=== PATIENT | female | born 1970 | race Hispanic/Latino ===

== ENCOUNTER 2017-06-07 00:40 | Emergency (ER) | payer SELFPAY ==
[2017-06-07] MEDS ORDERED: Dexamethasone 10 MG/ML VIAL ONE (01:04)
[2017-06-07] MEDS ORDERED: Albuterol Sulfate 2.5 mg/3 ml Neb ONE (01:10)
[2017-06-07 01:19] LABS: Hemoglobin 14.9 g/dL (12.0-16.0); Mean Corpuscular HGB CONC 33.2 g/dL (32.0-36.0); Mean Corpuscular Hemoglobin 30.1 pg (27.0-31.0); Mean Corpuscular Volume 90.9 fl (81.0-99.0); Mean Platelet Volume 6.6 fL (7.4-10.4); Platelet Count 267 thou/uL (130-400); Red Blood Cell (RBC) Count 4.96 mill/uL (4.20-5.40); White Blood Cell (WBC) Count 5.1 thou/uL (4.8-10.8)
[2017-06-07 01:32] LABS: ALT (SGPT) 52 U/L (8-55); AST (SGOT) 43 U/L (5-34); Albumin 4.2 g/dL (3.5-5.0); Alkaline Phosphatase 71 U/L (40-150); Anion Gap 11 mmol/L (10-20); BUN (Urea Nitrogen) 10 mg/dL (7.0-18.7); Bilirubin, Total 0.4 mg/dL (0.2-1.2); Calc. Creatinine Clearance 0 mL/min (70-130); Carbon Dioxide 26 mmol/L (22-29); Chloride 96 mmol/L (98-107); Estimated GFR-MDRD 84; Globulin 3.3 g/dL (2.4-3.5); Glucose 125 mg/dL (70-105); Protein, Total 7.5 g/dL (6.0-8.3); Sodium 130 mmol/L (136-145)
[2017-06-07 01:34] LABS: Band 3 % (5-11); Eosinophils 1 % (0-10); Lymphocytes 70 % (21-51); MDiff Complete? YES; Monocytes 7 % (0-10); Neutrophil 19 % (42-75)
[2017-06-07 01:36] LABS: CKMB 0.5 ng/mL (0-6.6); Troponin I Less than 0.010 ng/mL (< 0.028)
[2017-06-07 01:37] LABS: Potassium 2.9 mmol/L (3.5-5.1)
[2017-06-07] MEDS ORDERED: Potassium Chloride 20 MEQ TAB ONE (02:25)
--- NOTE | 2017-06-07 07:52 | RAD ---
CHEST 1 VIEW: Date: 06/07/17 HISTORY: Cough and congestion. FINDINGS: No comparison. Cardiac silhouette and pulmonary vasculature are unremarkable. Mediastinum is midline. There is no co nfluent air space consolidation or evidence of pneumothorax. gift shop assistant leads overlie the chest. IMPRESSION: No active cardiopulmonary abnormalities are demonstrated. POS: [facility]
--- NOTE | 2017-06-16 17:49 | EKG ---
Test Reason : Blood Pressure : / mmHG Vent. Rate : 065 BPM Atrial Rate : 065 BPM P-R Int : 142 ms QRS Dur : 078 ms QT Int : 436 ms P-R-T Axes : 039 008 061 degrees QTc Int : 453 ms Normal sinus rhythm Nonspecific T wave abnormality Abnormal ECG Confirmed by SHILPA NAIK D.O. ([id number]), assistant production editor JOHNNIE ASHRAF ([id number]) on 06/16/2017 5:48:12 PM Referred By: Confirmed By:SHILPA NAIK D.O.
== END 2017-06-07 02:36 | disposition home or self-care (01) ==
LOC: ERS 00:40
DX: J20.9 Acute bronchitis, unspecified (principal); F41.9 Anxiety disorder, unspecified; F32.9 Major depressive disorder, single episode, unspecified
CPT/HCPCS: 71045; 80053; 82553; 83735; 84484; 85025; 87804; 93005; 94640; 96374; 99406; J1100; J7611